=== PATIENT | female | born 1955 | race Caucasian/White ===

== ENCOUNTER → 2017-10-23 | Day surgery (SDC) | payer OTHER ==
[~2017-10-23] VITALS: Ht 170.2 cm; Wt 92.9 kg
[~2017-10-23] MED LIST: *HYDROmorphone PF 1 MG VIAL PERIprocedural Use ONLY ONE; *diphenhydrAMINE HCL 50 MG/ML VIAL PERIprocedural Use ONLY ONE; *morphine SULFATE 8 MG/ML PERIprocedure ONLY ONE; ACETAMINOPHEN 1000 MG/100 ML 100 ML IV SCH; ACETAMINOPHEN/HYDROcodone 325 MG/5 MG TAB ONE; ACETAMINOPHEN/HYDROcodone 325 MG/5 MG TAB PO PRN; APREPITANT 40 MG CAP ONE; BUPIVACAINE/EPINEPHRINE 0.25% PF 30 ML VIAL ONE; CHLORHEXIDINE GLUCONATE 2 % 1 PACK (2 CLOTHS) TOPICAL PRN; DEXAMETHASONE SOD PHOS 4 MG/ML VIAL IV ONE; DO NOT ADM ANY ANTICOAGULANT DRUGS PRN; ESMOLOL HCL 100 MG/10 ML VIAL IV ONE; GLYCOPYRROLATE 1 MG/5 ML SYRINGE IV PUSH ONE; KETOROLAC TROMETHAMINE 30 MG/ML (IVP) VIAL IV PUSH ONE; LACTATED RINGER'S 1000 ML IV PRN; LEVO112T2 PO; LIDOCAINE HCL 1% PF 5 ML SYRINGE OTHER ONE; LOSA100T PO; METOPROLOL TARTRATE 25 MG TAB PO PRN; MIDAZOLAM HCL 2 MG/2 ML VIAL ONE; MORPHINE SULFATE 2 MG/ML INJ IV PRN; MORPHINE SULFATE 4 MG/ML INJ IV ONE; NEOSTIGMINE 5 MG/5 ML SYRINGE IV PUSH ONE; NORC5TAB PO; ONDANSETRON HCL 4 MG/2 ML VIAL IV PUSH ONE; ONDANSETRON HCL 4 MG/2 ML VIAL IV PUSH PRN; PANT40TA3 PO; PHENYLEPH/NS 1000 MCG/10 ML SYR IV ONE; POVIDONE IODINE 5% (ANTISEPSIS KIT) 4 APPLICATIONS EACH NARE PRN; PROPOFOL 200 MG/20 ML AMP IV ONE; ROCURONIUM INJ 50 MG/5 ML SYRINGE IV PUSH ONE; SODIUM CHLOR 0.9% 250 ML INJ 250 ML IV ONE; SODIUM CHLORID 0.9% 500 ML IV PRN; VANCOMYCIN 1,000 MG/NS 250 ML IV SCH; VITA10002 PO; VITA2000 PO; ceFAZolin 1,000 MG/NS 100 ML IV SCH; ePHEDrine/NS 25 MG/5 ML SYR IV ONE
[2017-10-23 09:08] LABS: AUTOMATED NEUTROPHIL # 2.6 TH/MM3 (1.8-7.7); BASOPHIL % 0.8 % (0.0-2.0); EOSINOPHIL # 0.1 TH/MM3 (0-0.4); EOSINOPHIL % 2.5 % (0.0-4.0); HEMO FLAGS DIFF FINAL; LYMPH % 29.4 % (9.0-44.0); LYMPHOCYTE # 1.3 TH/MM3 (1.0-4.8); MEAN CELL VOLUME 87.3 FL (80.0-100.0); MEAN CORPUSCULAR HEMOGLOBIN 29.1 PG (27.0-34.0); MEAN CORPUSCULAR HGB CONC 33.3 % (32.0-36.0); MONO % 8.2 % (0.0-8.0); NEUT % 59.1 % (16.0-70.0); PLATELET COUNT 163 TH/MM3 (150-450); RED BLOOD COUNT 4.23 MIL/MM3 (4.00-5.30); WHITE BLOOD COUNT 4.4 TH/MM3 (4.0-11.0)
[2017-10-23 09:26] LABS: BICARBONATE 25.2 MEQ/L (21.0-32.0); POTASSIUM 4.1 MEQ/L (3.5-5.1)
[2017-10-23 09:30] LABS: INDIRECT BILIRUBIN 0.4 MG/DL (0.0-0.8); TOTAL BILIRUBIN ADULT 0.5 MG/DL (0.2-1.0)
--- NOTE | 2017-10-23 09:32 | EKG ---
Date Performed: 10/23/2017 Time Performed: 08:30:08 PTAGE: 62 years EKG: SINUS BRADYCARDIA LOW QRS VOLTAGE IN PRECORDIAL LEADS BORDERLINE ECG NO PREVIOUS TRACING DOCTOR: Feliciano Russell Interpretating Date/Time 10/23/2017 09:30:57
--- NOTE | 2017-10-23 11:41 | HHI.PR ---
cc: Mamadou Luque MD Immediate Post Op Note Procedure Date: Oct 23, 2017 Pre Op Diagnosis: Symptomatic cholelithiasis with biliary colic Elevated LFT's Post Op Diagnosis: Same Surgeon: Mamadou Luque Kaiako Kura [place] Maori(s): Lily Rider CFA Procedure: Laparoscopic cholecystectomy Laparoscopic Omkar-cut bx X 2 Complications: None Specimen(s) removed: Gallbladder, Omkar-cut liver biopsies to pathology Estimated blood loss: 50 ml Anesthesia: General Drains: None IVF (1000 ml) Patient to: PACU Patient Condition: Good Date/Time of Procedure: SEE SURGICAL CARE RECORD Mamadou Luque MD Oct 23, 2017 11:41
[2017-10-23 12:45] VITALS: BP 142/68; PULSE 66; RESP 18; TEMP 97.7; O2SAT 97
--- NOTE | 2017-10-24 11:02 | MP ---
cc: YEN TRUJILLO M.D., ARUN M.D. CHEWNING, JOHN R. D.O. DATE OF SURGERY: 10/23/2017 PROCEDURE 1. Laparoscopic cholecystectomy. 2. Omkar-Cut liver biopsy x2. OPERATIVE REPORT Dr. Fairchild and Dr. Bose PREOPERATIVE DIAGNOSIS Symptomatic cholelithiasis with biliary colic. Elevated liver function tests. ANESTHESIA General endotracheal SURGEON Rebel BREAKFAST COOK: Megan Nieves CFA ESTIMATED BLOOD LOSS: 50 mls. FLUIDS: 1000 mls crystalloid COMPLICATIONS None. DRAINS: None. SPECIMEN Gallbladder and Omkar-Cut liver biopsies x2 to pathology. PROCEDURE IN DETAIL The patient was taken to the operating room and placed on the operating table in the supine position. After an adequate level of general endotracheal anesthesia was achieved the abdomen was prepped and draped in usual fashion. Time-out was taken confirming the correct patient site and procedures to be performed. Skin and subcutaneous tissue was infiltrated with local anesthetic and incision made in the umbilicus and carried to the fascia sharply. The peritoneal cavity was directly visualized. A 12 mm balloon trocar was inserted and the balloon inflated. The abdomen was insufflated. The patient was placed in reverse Trendelenburg position. Three 5 mm trocars were then placed with the first to the right of falciform ligament and the second and third in the right subcostal region. All entered the abdominal cavity under direct vision uneventfully. The fundus of the gallbladder was then grasped and retracted upward. The cystic duct infundibular junction and cystic artery were both circumferentially dissected. The cystic artery was doubly clipped proximally, singly clipped on the gallbladder side and divided. The cystic duct was doubly clipped distally, singly clipped on the gallbladder side and divided as well. As the patient had normal liver function tests at this time, nondilated common bile duct and normal anatomy, cholangiogram was not obtained. The gallbladder was dissected off of liver bed with electro dissection. The gallbladder was placed into an EndoCatch device and while observing via the upper 5 mm trocar site, was removed via the umbilical port and passed off the table. The upper abdomen was revisualized via the umbilical port. The liver bed, cystic artery stump, and cystic duct stump were all examined and seen to be clean and dry. At this point, a Omkar-Cut needle was brought in via separate stab incision and two cores of liver were removed. Both sites were made hemostatic after removing the cores of tissue. When this was completed, all irrigation was aspirated from the abdominal cavity. The biopsy sites were confirmed to be dry as was the liver bed, cystic artery stump, and cystic duct stump. Insufflation was discontinued and the upper abdominal trocars removed under direct vision. No bleeding was noted from the trocar sites during desufflation. The laparoscope and umbilical port were removed. The fascia was closed in the umbilical site with 0 Vicryl suture in an interrupted fashion. The remaining local anesthetic was injected into the trocar sites. The skin was closed at each of the trocar sites with 4-0 Vicryl in an interrupted buried fashion. All sites were dressed with Steri-Strips. The patient was extubated and taken back to the recovery room in stable condition. She tolerated the procedure well. MD KELLY Eastman/kathy /3:31 PM /10:46 AM SHAI
== END | disposition home or self-care (01) ==
LOC: HSDC 07:58
PROVIDERS: ATTEND Surgery Trauma Surgery
DX: K80.10 Calculus of gallbladder with chronic cholecystitis without obstruction (principal); K76.0 Fatty (change of) liver, not elsewhere classified; R94.5 Abnormal results of liver function studies; E03.9 Hypothyroidism, unspecified; I10 Essential (primary) hypertension; R73.03 Prediabetes; K21.9 Gastro-esophageal reflux disease without esophagitis; E66.9 Obesity, unspecified; Z68.30 Body mass index [BMI] 30.0-30.9, adult
CPT/HCPCS: 00790; 47000; 47562; 80048; 80076; 85025; 88304; 88307; 88313; 93005; J0131; J0690; J1170; J1200; J2250; J2270; J3370; J7050; J7120; J8501; J1100; J1885; J2370; J2405; J2710; J3010

== ENCOUNTER 2017-10-31 10:50 | Emergency (ER) | payer OTHER ==
[~2017-10-31] VITALS: Ht 170.2 cm; Wt 90.0 kg
[~2017-10-31 10:50] MED LIST changes: -*HYDROmorphone PF 1 MG VIAL PERIprocedural Use ONLY ONE; -*diphenhydrAMINE HCL 50 MG/ML VIAL PERIprocedural Use ONLY ONE; -*morphine SULFATE 8 MG/ML PERIprocedure ONLY ONE; -ACETAMINOPHEN 1000 MG/100 ML 100 ML IV SCH; -ACETAMINOPHEN/HYDROcodone 325 MG/5 MG TAB ONE; -ACETAMINOPHEN/HYDROcodone 325 MG/5 MG TAB PO PRN; -APREPITANT 40 MG CAP ONE; -BUPIVACAINE/EPINEPHRINE 0.25% PF 30 ML VIAL ONE; -CHLORHEXIDINE GLUCONATE 2 % 1 PACK (2 CLOTHS) TOPICAL PRN; -DEXAMETHASONE SOD PHOS 4 MG/ML VIAL IV ONE; -DO NOT ADM ANY ANTICOAGULANT DRUGS PRN; -ESMOLOL HCL 100 MG/10 ML VIAL IV ONE; -GLYCOPYRROLATE 1 MG/5 ML SYRINGE IV PUSH ONE; -KETOROLAC TROMETHAMINE 30 MG/ML (IVP) VIAL IV PUSH ONE; -LACTATED RINGER'S 1000 ML IV PRN; -LIDOCAINE HCL 1% PF 5 ML SYRINGE OTHER ONE; -METOPROLOL TARTRATE 25 MG TAB PO PRN; -MIDAZOLAM HCL 2 MG/2 ML VIAL ONE; -MORPHINE SULFATE 2 MG/ML INJ IV PRN; -MORPHINE SULFATE 4 MG/ML INJ IV ONE; -NEOSTIGMINE 5 MG/5 ML SYRINGE IV PUSH ONE; -ONDANSETRON HCL 4 MG/2 ML VIAL IV PUSH ONE; -ONDANSETRON HCL 4 MG/2 ML VIAL IV PUSH PRN; -PHENYLEPH/NS 1000 MCG/10 ML SYR IV ONE; -POVIDONE IODINE 5% (ANTISEPSIS KIT) 4 APPLICATIONS EACH NARE PRN; -PROPOFOL 200 MG/20 ML AMP IV ONE; -ROCURONIUM INJ 50 MG/5 ML SYRINGE IV PUSH ONE; -SODIUM CHLOR 0.9% 250 ML INJ 250 ML IV ONE; -SODIUM CHLORID 0.9% 500 ML IV PRN; -VANCOMYCIN 1,000 MG/NS 250 ML IV SCH; -ceFAZolin 1,000 MG/NS 100 ML IV SCH; -ePHEDrine/NS 25 MG/5 ML SYR IV ONE
[2017-10-31 10:51] VITALS: BP 152/80; PULSE 72; RESP 12; TEMP 98.3; O2SAT 98
[2017-10-31] MEDS ORDERED: IOHEXOL 350 MG/ML 10 ML VIAL (for RAD DIAG) IVCONTRAST ONE (10:51)
[2017-10-31] MEDS ORDERED: SODIUM CHLOR 0.9% 1000 ML INJ 1,000 ML IV SCH (11:05)
[2017-10-31] MEDS ORDERED: SODIUM CHLORIDE 0.9% FLUSH 10 ML FLUSH IV FLUSH PRN (11:15)
[2017-10-31] MEDS ORDERED: MORPHINE SULFATE 4 MG/ML INJ IV PUSH ONE ×2 (11:15→14:00)
[2017-10-31] MEDS ORDERED: ONDANSETRON HCL 4 MG/2 ML VIAL IVP ONE (11:15)
[2017-10-31] MEDS ORDERED: KETOROLAC TROMETHAMINE 30 MG/ML (IVP) VIAL IVP ONE (11:15)
[2017-10-31 11:22] VITALS: O2SAT 98
--- NOTE | 2017-10-31 11:30 | PD ---
HPI Chief Complaint: Abdominal Pain Time Seen by Provider: 10:57 Travel History International Travel<30 days: No Contact w/Intl Traveler<30days: No Traveled to known affect area: No History of Present Illness HPI The patient is a 62-year-old female who presents emergency department for right upper quadrant abdominal pain. The patient recently underwent laparoscopic cholecystectomy by Dr. Luque on October 23, 2017. The patient states she was doing well until when she developed pain. The patient states she was seen in the office by Dr. Luque on , felt great, however , developed pain night. Initially the pain was intermittent, but over the last 24 hours has been persistent. The pain is located in the right upper quadrant, occasionally radiates to the back, is exacerbated by inspiration, lying supine, and palpation. She denies any nausea or vomiting. She states this pain is different than the pain she had prior to the gallbladder removal. She denies any fever, chills, or sweats. She denies any chest pain or shortness of breath. She denies any history of pulmonary embolism or DVT. She does note the pain is located in the right upper quadrant to right lower chest wall and worse with inspiration. She does note a dry nonproductive cough intermittent leg. PFSH Past Medical History Cancer: No Cardiovascular Problems: No Diabetes: No Endocrine: No Gastrointestinal Disorders: Yes (GERD, GALLSTONES) Genitourinary: No Hepatitis: No Hiatal Hernia: No Hypertension: Yes Immune Disorder: No Musculoskeletal: No Neurologic: No Psychiatric: Yes (ANXIETY) Reproductive: No Respiratory: No Thyroid Disease: Yes Past Surgical History Abdominal Surgery: No AICD: No Body Medical Devices: RIGHT EAR PROTHESIS Cardiac Surgery: Yes (CARDIAC CATH 2012) Ear Surgery: Yes (STEPIDECTOMY RIGHT EAR x2) Endocrine Surgery: No Eye Surgery: No Genitourinary Surgery: Yes (BLADDER LIFT) Gynecologic Surgery: Yes (HYSTERECTOMY, TUBAL) Joint Replacement: No Oral Surgery: No Pacemaker: No Thoracic Surgery: No Other Surgery: Yes Social History Alcohol Use: No Tobacco Use: No Substance Use: No Allergies-Medications (Allergen,Severity, Reaction): Coded Allergies: No Known Allergies (Unverified , 10/31/17) Reported Meds & Prescriptions Reported Meds & Active Scripts Active Moira (Hydrocodone-Acetaminophen) 5 Mg-325 Mg Tab 1-2 Tab PO Q4H PRN Reported Vitamin D3 (Cholecalciferol) 2,000 Unit Cap 2,000 Units PO DAILY Vitamin B-12 (Cyanocobalamin) 1,000 Mcg Tab 1,000 Mcg PO DAILY Pantoprazole (Pantoprazole Sodium) 40 Mg Tab 40 Mg PO DAILY Levothyroxine (Levothyroxine Sodium) 112 Mcg Tab 112 Mcg PO DAILY Losartan (Losartan Potassium) 100 Mg Tab 100 Mg PO DAILY Review of Systems Except as stated in HPI: all other systems reviewed are Neg General / Constitutional: No: Fever, Chills Cardiovascular: No: Chest Pain or Discomfort Respiratory: Positive: Cough, No: Shortness of Breath Gastrointestinal: Positive: Abdominal Pain, No: Nausea, Vomiting, Diarrhea Genitourinary: No: Dysuria Skin: No Rash Physical Exam Narrative GENERAL: Awake, alert, pleasant 4-3-[age]-old female who appears her stated age and is in no acute respiratory distress. Patient does appear moderate discomfort, especially lying supine. SKIN: Focused skin assessment warm/dry. HEAD: Atraumatic. Normocephalic. EYES: Pupils equal and round. No scleral icterus. No injection or drainage. ENT: No nasal bleeding or discharge. Mucous membranes pink and moist. NECK: Trachea midline. No JVD. CARDIOVASCULAR: Regular rate and rhythm. No murmur appreciated. Heart rate in the 70s. RESPIRATORY: No accessory muscle use. Clear to auscultation. Breath sounds equal bilaterally. GASTROINTESTINAL: Abdomen soft, tender to palpation right upper quadrant and lower chest wall. No obvious stigmata of shingles. Mild guarding but no rigidity. Back: No CVA tenderness. MUSCULOSKELETAL: No obvious deformities. No clubbing. No cyanosis. No edema. NEUROLOGICAL: Awake and alert. No obvious cranial nerve deficits. Motor grossly within normal limits. Normal speech. PSYCHIATRIC: Appropriate mood and affect; insight and judgment normal. Data Data Last Documented VS Vital Signs Date Time Temp Pulse Resp B/P (MAP) Pulse Ox O2 Delivery O2 Flow Rate FiO2 10/31/17 11:22 98 10/31/17 10:51 98.3 72 12 Orders Orders Complete Blood Count With Diff (10/31/17 11:05) Comprehensive Metabolic Panel (10/31/17 11:05) Lipase (10/31/17 11:05) Ct Abd/Pel W Iv Contrast(Rout) (10/31/17 11:05) Iv Access Insert/Monitor (10/31/17 11:05) Ecg Monitoring (10/31/17 11:05) Oximetry (10/31/17 11:05) Morphine Inj (Morphine Inj) (10/31/17 11:15) Ondansetron Inj (Zofran Inj) (10/31/17 11:15) Sodium Chlor 0.9% 1000 Ml Inj (Ns 1000 M (10/31/17 11:05) Sodium Chloride 0.9% Flush (Ns Flush) (10/31/17 11:15) Chest, Single Ap (10/31/17 11:05) Ketorolac Inj (Toradol Inj) (10/31/17 11:15) Ct Pulmonary Angiogram (10/31/17 ) Oral Contrast - Adult (10/31/17 11:13) Diatrizoate Liq ( Gastroview Liq) (10/31/17 11:38) Iohexol 350 Inj (Omnipaque 350 Inj) (10/31/17 10:51) Morphine Inj (Morphine Inj) (10/31/17 14:00) Ondansetron Inj (Zofran Inj) (10/31/17 14:00) Labs Laboratory Tests Test 10/31/17 11:30 White Blood Count 7.1 TH/MM3 Red Blood Count 4.41 MIL/MM3 Hemoglobin 13.0 GM/DL Hematocrit 38.6 % Mean Corpuscular Volume 87.5 FL Mean Corpuscular Hemoglobin 29.5 PG Mean Corpuscular Hemoglobin Concent 33.7 % Red Cell Distribution Width 14.3 % Platelet Count 192 TH/MM3 Mean Platelet Volume 9.1 FL Neutrophils (%) (Auto) 78.0 % Lymphocytes (%) (Auto) 14.7 % Monocytes (%) (Auto) 5.0 % Eosinophils (%) (Auto) 1.9 % Basophils (%) (Auto) 0.4 % Neutrophils # (Auto) 5.5 TH/MM3 Lymphocytes # (Auto) 1.0 TH/MM3 Monocytes # (Auto) 0.4 TH/MM3 Eosinophils # (Auto) 0.1 TH/MM3 Basophils # (Auto) 0.0 TH/MM3 CBC Comment DIFF FINAL Differential Comment Blood Urea Nitrogen 12 MG/DL Creatinine 0.83 MG/DL Random Glucose 96 MG/DL Total Protein 8.1 GM/DL Albumin 4.0 GM/DL Calcium Level 9.1 MG/DL Alkaline Phosphatase 101 U/L Aspartate Amino Transf (AST/SGOT) 18 U/L Alanine Aminotransferase (ALT/SGPT) 63 U/L Total Bilirubin 0.5 MG/DL Sodium Level 138 MEQ/L Potassium Level 4.0 MEQ/L Chloride Level 104 MEQ/L Carbon Dioxide Level 26.1 MEQ/L Anion Gap 8 MEQ/L Estimat Glomerular Filtration Rate 70 ML/MIN Lipase 67 U/L MDM Medical Decision Making Medical Screen Exam Complete: Yes Emergency Medical Condition: Yes Medical Record Reviewed: Yes Interpretation(s) Laboratory Tests Test 10/31/17 11:30 White Blood Count 7.1 TH/MM3 Red Blood Count 4.41 MIL/MM3 Hemoglobin 13.0 GM/DL Hematocrit 38.6 % Mean Corpuscular Volume 87.5 FL Mean Corpuscular Hemoglobin 29.5 PG Mean Corpuscular Hemoglobin Concent 33.7 % Red Cell Distribution Width 14.3 % Platelet Count 192 TH/MM3 Mean Platelet Volume 9.1 FL Neutrophils (%) (Auto) 78.0 % Lymphocytes (%) (Auto) 14.7 % Monocytes (%) (Auto) 5.0 % Eosinophils (%) (Auto) 1.9 % Basophils (%) (Auto) 0.4 % Neutrophils # (Auto) 5.5 TH/MM3 Lymphocytes # (Auto) 1.0 TH/MM3 Monocytes # (Auto) 0.4 TH/MM3 Eosinophils # (Auto) 0.1 TH/MM3 Basophils # (Auto) 0.0 TH/MM3 CBC Comment DIFF FINAL Differential Comment Blood Urea Nitrogen 12 MG/DL Creatinine 0.83 MG/DL Random Glucose 96 MG/DL Total Protein 8.1 GM/DL Albumin 4.0 GM/DL Calcium Level 9.1 MG/DL Alkaline Phosphatase 101 U/L Aspartate Amino Transf (AST/SGOT) 18 U/L Alanine Aminotransferase (ALT/SGPT) 63 U/L Total Bilirubin 0.5 MG/DL Sodium Level 138 MEQ/L Potassium Level 4.0 MEQ/L Chloride Level 104 MEQ/L Carbon Dioxide Level 26.1 MEQ/L Anion Gap 8 MEQ/L Estimat Glomerular Filtration Rate 70 ML/MIN Lipase 67 U/L Last Impressions Chest X-Ray 10/31/17 1105 Signed Impressions: Service Date/Time: Tuesday, October 31, 2017 11:21 - CONCLUSION: 1. No acute cardiopulmonary disease. Salbador Goodwin MD Abdomen/Pelvis CT 10/31/17 1105 Signed Impressions: Service Date/Time: Tuesday, October 31, 2017 13:06 - CONCLUSION: 1. Status post cholecystectomy with trace amount of fluid in the gallbladder fossa. Small contained bile leak cannot be entirely excluded. 2. Prominence of the common bile duct measuring up to 9 mm. No definitive intraductal stone is noted. The this finding is nonspecific and may reflect reservoir effect. Salbador Goodwin MD CT Angiography 10/31/17 0000 Signed Impressions: Service Date/Time: Tuesday, October 31, 2017 13:06 - CONCLUSION: 1. No evidence of pulmonary embolism. 2. Scattered atelectasis and/or scarring involving the bilateral lower lobes, right middle lobe, and lingula of the left upper lobe. 3. Mild aneurysmal dilatation of the ascending thoracic aorta measuring 4.0 x 3.7 cm. 4. Mild cardiomegaly. 5. Minimal scattered centrilobular emphysema. Juanjo Bruner MD Differential Diagnosis Differential diagnosis includes postoperative seroma, hematoma, bile duct leak, lower lobe pneumonia, postoperative abscess, pulmonary embolism, neuralgia. Narrative Course IV was established, labs are drawn and sent, and the patient was placed on cardiac telemetry monitoring and continuous pulse oximetry monitoring. I discussed the patient with Dr. Luque who recommended CT of the abdomen and pelvis with IV and oral contrast as well as evaluation of LFTs. Chest x-ray was obtained. CT pulmonary angiogram was ordered with CT the abdomen and pelvis to rule out pulmonary embolism status post surgery with right lower chest wall pain and pleuritic component. Labs are unremarkable, white count is normal, LFTs are normal except for slightly elevated ALT is 63. No evidence of biliary obstruction. CT pulmonary angiogram was negative for PE. CT abdomen and pelvis reveals dilated duct, but no obvious obstruction. The patient was evaluated in the emergency department by Dr. Luque at 1:40 PM. The patient's pain did return, there is no obvious acute surgical abdomen and the patient was cleared to go home by Dr. Luque. The patient will be discharged home with Percocet and Bentyl. She will be provided a copy of her CT results and lab results at discharge. Diagnosis Primary Impression: Postoperative right upper quadrant abdominal pain Patient Instructions: General Instructions Additional Instructions: Medications as directed. Please provide the patient a copy of her labs and CT results at discharge. Follow-up with your surgeon and primary physician. Return if symptoms worsen or progress. Med/Other Pt SpecificInfo: Prescription(s) given Scripts Dicyclomine (Bentyl) 10 Mg Cap 10 MG PO QID for Bowel Management, #12 CAP 0 Refills Prov: Zaheer Trevizo MD 10/31/17 Oxycodone-Acetaminophen (Percocet) 5-325 mg Tab 1 TAB PO Q6H Y for PAIN, #12 TAB 0 Refills Prov: Zaheer Trevizo MD 10/31/17 Disposition: 01 DISCHARGE HOME Condition: Stable Zaheer Trevizo MD Oct 31, 2017 11:30
[2017-10-31] MEDS ORDERED: DIATRIZOATE MEGLUM/DIATRIZOATE SOD 9 ML CUP ONE (11:38)
[2017-10-31 11:39] LABS: AUTOMATED NEUTROPHIL # 5.5 TH/MM3 (1.8-7.7); BASOPHIL % 0.4 % (0.0-2.0); EOSINOPHIL # 0.1 TH/MM3 (0-0.4); EOSINOPHIL % 1.9 % (0.0-4.0); HEMATOCRIT 38.6 % (35.0-46.0); LYMPH % 14.7 % (9.0-44.0); MEAN CELL VOLUME 87.5 FL (80.0-100.0); MEAN CORPUSCULAR HEMOGLOBIN 29.5 PG (27.0-34.0); MEAN CORPUSCULAR HGB CONC 33.7 % (32.0-36.0); MEAN PLATELET VOLUME 9.1 FL (7.0-11.0); MONOCYTE # 0.4 TH/MM3 (0-0.9); PLATELET COUNT 192 TH/MM3 (150-450); RED BLOOD COUNT 4.41 MIL/MM3 (4.00-5.30); RED CELL DISTRIBUTION WIDTH 14.3 % (11.6-17.2); WHITE BLOOD COUNT 7.1 TH/MM3 (4.0-11.0)
[2017-10-31 11:52] LABS: AST (GOT) 18 U/L (15-37); BICARBONATE 26.1 MEQ/L (21.0-32.0); BLOOD UREA NITROGEN 12 MG/DL (7-18); CALCIUM 9.1 MG/DL (8.5-10.1); CHLORIDE 104 MEQ/L (98-107); CREATININE 0.83 MG/DL (0.50-1.00); GLOMERULAR FILTRATION RATE 70 ML/MIN (>89); GLUCOSE,RANDOM 96 MG/DL (74-106); LIPASE 67 U/L (73-393); SODIUM (NA) 138 MEQ/L (136-145)
[2017-10-31 11:53] LABS: ALT (GPT) 63 U/L (10-53)
[2017-10-31 11:55] LABS: ALKALINE PHOSPHATASE 101 U/L (45-117); TOTAL BILIRUBIN ADULT 0.5 MG/DL (0.2-1.0); TOTAL PROTEIN 8.1 GM/DL (6.4-8.2)
--- NOTE | 2017-10-31 12:07 | RADRPT ---
EXAM DATE/TIME: 10/31/2017 11:21 [facility] COMPARISON: No previous studies available for comparison. INDICATIONS : Lower right chest pain post operation for cholecystectomy and liver biopsy. MEDICAL HISTORY : None. SURGICAL HISTORY : Cholecystectomy. Cardiac catheterization. ENCOUNTER: Initial ACUITY: 1 month PAIN SCORE: 7/10 LOCATION: Right lower chest FINDINGS: A single view of the chest demonstrates the lungs to be symmetrically aerated without evidence of mas s, infiltrate or effusion. The cardiomediastinal contours are unremarkable. Osseous structures are intact. CONCLUSION: 1. No acute cardiopulmonary disease. Salbador Goodwin MD on October 31, 2017 at 11:57 Board Certified Radiologist. This report was verified electronically.
--- NOTE | 2017-10-31 13:38 | RADRPT ---
EXAM DATE/TIME: 10/31/2017 13:06 [facility] COMPARISON: No previous studies available for comparison. INDICATIONS : Right side chest pain with inspiration. IV CONTRAST: 63 cc Omnipaque 350 (iohexol) IV ; Cumulative dose for multiple exams. RADIATION DOSE: 23.23 CTDIvol (mGy) MEDICAL HISTORY : Cardiovascular disease. Hypertension. Gastroesophageal reflux disease. SURGICAL HISTORY : Cholecystectomy. Hysterectomy. ENCOUNTER: Initial ACUITY: 2 days PAIN SCALE: 5/10 LOCATION: Right upper chest TECHNIQUE: Volumetric scanning of the chest was performed using a pulmonary embolism protocol MIP images were re constructed. Using automated exposure control and adjustment of the mA and/or kV according to patien t size, radiation dose was kept as low as reasonably achievable to obtain optimal diagnostic quality images. DICOM format image data is available electronically for review and comparison. Follow-up recommendations for detected pulmonary nodules are based at a minimum on nodule size and pa tient risk factors according to Fleischner Society Guidelines. FINDINGS: PULMONARY ARTERIES: No filling defects are seen in the pulmonary arteries through the segmental level. LUNGS: There is no consolidation or pneumothorax . Minimal atelectasis and/or scarring is noted within the r ight middle lobe, lingula of the left upper lobe, and lower lobes bilaterally. No concerning pulmonar y nodule is visualized. Minimal scattered centrilobular emphysematous changes are noted. PLEURAE: There is no pleural thickening or pleural effusion. MEDIASTINUM: There is good visualization of the great vessels of the middle mediastinum. No evidence of mediastin al or hilar adenopathy/mass. There is mild aneurysmal dilatation of the ascending thoracic aorta whic h measures 4.0 cm x 3.7 cm. Mild cardiomegaly is noted. MUSCULOSKELETAL: Within normal limits for patient age. MISCELLANEOUS: The visualized upper abdominal organs demonstrate no acute abnormality. CONCLUSION: 1. No evidence of pulmonary embolism. 2. Scattered atelectasis and/or scarring involving the bilateral lower lobes, right middle lobe, and lingula of the left upper lobe. 3. Mild aneurysmal dilatation of the ascending thoracic aorta measuring 4.0 x 3.7 cm. 4. Mild cardiomegaly. 5. Minimal scattered centrilobular emphysema. Juanjo Bruner MD on October 31, 2017 at 13:29 Board Certified Radiologist. This report was verified electronically.
--- NOTE | 2017-10-31 13:45 | RADRPT ---
EXAM DATE/TIME: 10/31/2017 13:06 [facility] COMPARISON: No previous studies available for comparison. INDICATIONS : Pleuritic right lower lung pain following cholecystectomy. IV CONTRAST: 63 cc Omnipaque 350 (iohexol) IV ; Cumulative dose for multiple exams. ORAL CONTRAST: Prescribed oral contrast ingested. RADIATION DOSE: 13.47 CTDIvol (mGy) MEDICAL HISTORY : Cardiovascular disease. Hypertension. Gastroesophageal reflux disease. SURGICAL HISTORY : Cholecystectomy. Hysterectomy. ENCOUNTER: Initial ACUITY: 2 days PAIN SCALE: 5/10 LOCATION: Right upper quadrant TECHNIQUE: Volumetric scanning of the abdomen and pelvis was performed. Using automated exposure control and ad justment of the mA and/or kV according to patient size, radiation dose was kept as low as reasonably achievable to obtain optimal diagnostic quality images. DICOM format image data is available electro nically for review and comparison. FINDINGS: LOWER LUNGS: The visualized lower lungs are clear. LIVER: There is grossly unremarkable without evidence for hepatic ductal dilatation. The there is a trace am ount of fluid in the gallbladder fossa. Common bile duct is mildly prominent in size measuring up to 9 mm. SPLEEN: Normal size without lesion. PANCREAS: Within normal limits. KIDNEYS: Normal in size and shape. There is no mass, stone or hydronephrosis. ADRENAL GLANDS: Within normal limits. VASCULAR: There is no aortic aneurysm. BOWEL/MESENTERY: The stomach, small bowel, and colon demonstrate no acute abnormality. There is no free intraperitone al air or fluid. ABDOMINAL WALL: Within normal limits. RETROPERITONEUM: There is no lymphadenopathy. BLADDER: No wall thickening or mass. REPRODUCTIVE: Within normal limits. INGUINAL: There is no lymphadenopathy or hernia. MUSCULOSKELETAL: Within normal limits for patient age. CONCLUSION: 1. Status post cholecystectomy with trace amount of fluid in the gallbladder fossa. Small contained b ile leak cannot be entirely excluded. 2. Prominence of the common bile duct measuring up to 9 mm. No definitive intraductal stone is noted. The this finding is nonspecific and may reflect reservoir effect. Salbador Goodwin MD on October 31, 2017 at 13:31 Board Certified Radiologist. This report was verified electronically.
[2017-10-31] MEDS ORDERED: ONDANSETRON HCL 4 MG/2 ML VIAL IV PUSH ONE (14:00)
[2017-10-31] MEDS ORDERED: DICY10 PO (14:01)
[2017-10-31] MEDS ORDERED: PERC5TAB12 PO (14:01)
== END 2017-10-31 17:50 | disposition home or self-care (01) ==
LOC: NEPD 10:50
DX: G89.18 Other acute postprocedural pain (principal); R10.11 Right upper quadrant pain; E07.9 Disorder of thyroid, unspecified; I10 Essential (primary) hypertension
CPT/HCPCS: 71010; 71275; 74177; 80053; 83690; 85025; 96361; 96374; 96375; 99285; J1885; J2270; J2405; J7030; Q9963; Q9967